=== PATIENT | female | born 2000 | race African-American/Black ===

== ENCOUNTER 2025-04-16 14:58 | Emergency (ER) | payer OTHER ==
[~2025-04-16] VITALS: Ht 162.6 cm; Wt 45.5 kg
[2025-04-16 15:09] VITALS: TEMP 98.1
[2025-04-16] MEDS: ACETAMINOPHEN 325 MG TABLET PO ONE (16:59)
[2025-04-16] MEDS: PROPARACAINE HCL 0.5% 15 ML OPHTHALMIC SOLUTION OS ONE (19:02)
[2025-04-16] MEDS: FLUORESCEIN SODIUM 1 MG STRIP OS ONE (19:03)
[2025-04-16 19:06] VITALS: BP 115/72; PULSE 98; RESP 12; O2SAT 99
== END 2025-04-16 19:08 | disposition home or self-care (01) ==
LOC: EMS 15:44
DX: S00.83XA Contusion of other part of head, initial encounter (principal); W50.0XXA Accidental hit or strike by another person, initial encounter; Y93.89 Activity, other specified; Y92.89 Other specified places as the place of occurrence of the external cause; Y99.8 Other external cause status
CPT/HCPCS: 70450; 70486; 72125; 84703; 99284